=== PATIENT | male | born 1955 | race Caucasian/White ===

== ENCOUNTER 2023-10-03 18:51 | Inpatient (IN) | payer OTHER, SELFPAY ==
--- NOTE | ~2023-10-03 | XR_ITS ---
EXAMINATION: XR CHEST CLINICAL INFORMATION: Diffusely expiratory wheezing COMPARISON: 01/27/2016 TECHNIQUE: 2 views of the chest were obtained. FINDINGS: Hyperexpansion of the lung parenchyma with chronic emphysematous changes. There is small right pleural effusion seen. Increased interstitial reticular-nodular thickening seen bilaterally. Heart is normal in size. Thoracic aorta demonstrates scattered atherosclerotic calcifications XR/XR chest 2V IMPRESSION: Chronic emphysematous changes with small right pleural effusion. Increased interstitial reticular nodular thickening. Electronically signed by: Cheko Monahan MD 10/03/2023 09:36 PM EDT RP
--- NOTE | 2023-10-03 18:58 | ED.SOB ---
HPI - SOB/Dyspnea General Chief Complaint: Dyspnea Stated Complaint: asthma out of meds sob Time Seen by Provider: 10/03/23 19:02 Source: patient and family Mode of arrival: ambulatory Limitations: no limitations History of Present Illness ED Provider: tomy HALL Narrative: Patient is a 68-year-old male currently on methadone presenting to the emergency department with complaint of increasing dyspnea over the past month, worse this week. Patient's significant other states that he was worst on Saturday, Saturday, and Saturday of this week. She states he was too short of breath and weak to go to the methadone clinic to pick pulling machine tender his take-home methadone and was unable to get there until Saturday. Patient reports history of being diagnosed with COPD in the past at [facility] but states he is only prescribed an albuterol inhaler. He reports that his cough has recently become productive of yellow sputum. Denies fevers. Does not have home O2. Typically smokes 2 cigarettes per day, but recently felt too unwell to smoke at all. MD elicited complaint: shortness of breath and cough Pertinent past history: COPD Onset (ago): week(s) Timing: progressively worsening Exacerbating factors: exertion Relieving factors: rest Known history of: COPD Associated symptoms: cough and sputum production Treatment prior to arrival: none Related Data Allergies Allergy/AdvReac Type Severity Reaction Status Date / Time No Known Allergies Allergy Verified 10/03/23 19:04 Review of Systems Review of Systems: As per HPI. Yes all other systems are reviewed and are negative Constitutional: Constitutional: Reports as per HPI [facility] Social History Social History Advance Directives: No Advance Directives Information Provided: No Do you have a plan to hurt others: No Plan Physical Exam Vital Signs: Vital Signs: Last Vital Signs Temp 97.6 F 10/03/23 18:59 Pulse 79 10/03/23 20:58 Resp 18 10/03/23 20:58 BP 148/88 H 10/03/23 18:59 Pulse Ox 91 L 10/03/23 18:59 O2 Del Method Room Air 10/03/23 18:59 BMI result Body Mass Index 20.8 Vital signs have been reviewed and appear to be correct. Blood pressure elevated. Heart rate normal. Respiratory rate slightly tachypneic. Temperature normal. Oxygen saturation hypoxic on room air. Const: General: cooperative and no acute distress Nutritional Appearance: thin Orientation/consciousness: oriented to person, oriented to place, oriented to time and patient oriented x3 Limitations: no limitations HEENT: Head: Yes normocephalic and Yes atraumatic Ears: external ears normal General nose exam: Normal external nose present Face and sinus: Yes face symmetric Mouth: oropharynx normal and moist mucous membranes Throat: Yes uvula midline Eyes: Pupils: Equal, round and reactive pupils present Neck: Neck: Yes normal visual inspection and Yes supple Resp: Effort & Inspection: normal respiratory effort and able to speak in complete sentences Auscultation: diminished lung sounds diffuse Cardio: Rate: regular rate Rhythm: regular rhythm Heart sounds: S1 normal heart sound present and S2 normal heart sound present GI: Palpation (GI): Soft to palpation and nontender Auscultation: normoactive bowel sounds : General: Yes no CVA tenderness Back/Spine/Pelvis: Back: no CVA tenderness Skin: General skin exam: elasticity normal and turgor normal Neuro: General: oriented to person, oriented to place, oriented to time, patient oriented x3, moves all extremities, no focal motor deficits and CN's II-XI intact bilaterally Cranial nerves: Yes Equal, round and reactive pupils present Cognition (Neuro): normal cognition Extrem: General: Yes full ROM, Yes no pedal edema and Yes no calf tenderness Psych: Mental Status: mental status grossly normal Affect: normal affect Thought process: Normal thought process present Course Course Course Narrative: This is a Rapid Medical Examination (RME) performed by Yvrose Alas PA-C in triage. Full HPI, ROS, assessment and treatment plan per primary provider in the Main ED. 68 yo male hx of COPD not dependent on O2 and opioid use disorder on methadone here for eval of worsening sob x4 days with assoc productive cough. has been out of his inhaler. no fever/ chills. + satting 88% on RA. coughing. increased effort of breathing , diffuse expiratory wheezes. Plan: labs, cxr, ED bronch protocol Medications Administered Discontinued Medications Generic Name Dose Route Start Last Admin Trade Name Freq PRN Reason Stop Dose Admin Albuterol Sulfate 2.5 mg/ 0 mg 10/03/23 20:35 10/03/23 20:58 Albuterol/Ipratropium 3 ml INHALE 10/03/23 20:36 5 dose ONCE ONE Administration Methylprednisolone Sodium Succinate 125 mg 10/03/23 19:03 10/03/23 19:23 Methylprednisolone Sod Succ 125 Mg/2 Ml Vial IVPUSH 10/03/23 19:04 125 mg ONCE ONE Administration Medical Decision Making Medical Decision Making [facility] Narrative: Patient is a 68-year-old male currently on methadone presenting to the emergency department with complaint of increasing dyspnea over the past month, worse this week. On exam patient is awake, A+Ox3,slightly tachypneic, hypoxic on room air, BP mildly elevated, afebrile, normal neurological exam without focal deficits, physical exam findings as above. Given reported symptoms and physical exam findings, initial differential includes COPD exacerbation, viral illness, Covid, flu, bronchitis, pneumonia. Do not suspect sepsis at 19:40. Labs notable for leukocytosis, troponin of 10.6, downtrending on repeat. X-ray chest notable for small right pleural effusion, chronic emphysematous changes. My interpretation is in agreement with the radiologist's interpretation. IV ceftriaxone ordered. Admission accepted by Dr. Bazan. Differential Diagnosis Differential Diagnoses: The differential diagnosis associated with the presentation includes as per [facility] Admission/Observation Consideration of admission/observation: Escalation of care including admission/observation considered Consult Healthcare Provider Management of the patient was discussed with: Hospitalist (Dr. Bazan) Lab Data [facility] Lab Attestation statement: I reviewed the patient's lab results. As per [facility] 10/03/23 19:30 10/03/23 19:30 Labs: Lab Results 10/03/23 10/03/23 10/03/23 Range/Units 19:13 19:30 19:37 WBC 13.5 H (4.8-10.8) X10*3/uL RBC 5.11 (4.60-5.80) X10*6/uL Hgb 15.6 (14.0-18.0) g/dl Hct 45.8 (42.0-52.0) % MCV 89.6 (80.0-98.0) fL MCH 30.5 (27.0-33.0) pg MCHC 34.1 (31.0-36.0) g/dl RDW 12.4 (11.0-16.0) % Plt Count 348 (160-400) X10*3/uL MPV 8.9 L (9.4-12.4) fL Immature Gran % (Auto) 1.2 H (0.0-0.4) % Neut % (Auto) 69.3 (45-73) % Lymph % (Auto) 11.6 L (20-40) % [place] % (Auto) 16.6 H (2-11) % Eos % (Auto) 0.6 (0-4) % Baso % (Auto) 0.7 (0-2) % Lymph # (Auto) 1.6 (1.2-4.9) X10*3/uL [place] # (Auto) 2.2 H (0.1-1.2) X10*3/uL Eos # (Auto) 0.1 (0.0-0.4) X10*3/uL Baso # (Auto) 0.1 (0.0-0.2) X10*3/uL Abs Immat Gran (auto) 0.16 H (0.00-0.03) X10*3/uL Absolute Neuts (auto) 9.3 H (2.0-8.3) x10*3/uL Absolute Nucleated RBC 0.000 (0.0-0.012) X10*3/uL Nucleated RBC % (auto) 0.0 (0.0-0.2) /100WBC Smear Tech's Comments VERIFIED VBG pH 7.42 (7.32-7.43) VBG pCO2 51 mmHg VBG pO2 36 mmHg VBG HCO3 33 H (22-26) mmol/L VBG O2 Saturation 78.0 % VBG Base Excess 7.4 mmol/L Sodium 138 (135-145) mmol/L Potassium 3.5 (3.3-5.1) mmol/L Chloride 94 L (96-108) mmol/L Carbon Dioxide 30 H (22-29) mmol/L Anion Gap 18 (12-20) BUN 10 (9-16) mg/dL Creatinine 0.89 (0.5-1.4) mg/dL Estim Creat Clear Calc 71.8 Estimated GFR > 60 Random Glucose 101 (60-115) mg/dL Calcium 10.2 (8.4-10.2) mg/dL Magnesium 2.2 (1.6-2.6) mg/dL Total Bilirubin 0.6 (0.0-1.0) mg/dL AST 19 (5-37) U/L ALT 16 (0-40) U/L Alkaline Phosphatase 118 H (39-117) U/L Troponin I High Sens 10.6 (<3.5-35.0) ng/L Total Protein 8.0 (6.5-8.0) g/dL Albumin 3.8 (3.5-5.0) g/dL Influenza Type A (PCR) NEGATIVE (Negative) Influenza Type B (PCR) NEGATIVE (Negative) RSV RNA Qual (PCR) NEGATIVE (Negative) SARS-CoV-2 RNA (RT-PCR) NEGATIVE (Negative) 10/03/23 Range/Units 22:00 WBC (4.8-10.8) X10*3/uL RBC (4.60-5.80) X10*6/uL Hgb (14.0-18.0) g/dl Hct (42.0-52.0) % MCV (80.0-98.0) fL MCH (27.0-33.0) pg MCHC (31.0-36.0) g/dl RDW (11.0-16.0) % Plt Count (160-400) X10*3/uL MPV (9.4-12.4) fL Immature Gran % (Auto) (0.0-0.4) % Neut % (Auto) (45-73) % Lymph % (Auto) (20-40) % [place] % (Auto) (2-11) % Eos % (Auto) (0-4) % Baso % (Auto) (0-2) % Lymph # (Auto) (1.2-4.9) X10*3/uL [place] # (Auto) (0.1-1.2) X10*3/uL Eos # (Auto) (0.0-0.4) X10*3/uL Baso # (Auto) (0.0-0.2) X10*3/uL Abs Immat Gran (auto) (0.00-0.03) X10*3/uL Absolute Neuts (auto) (2.0-8.3) x10*3/uL Absolute Nucleated RBC (0.0-0.012) X10*3/uL Nucleated RBC % (auto) (0.0-0.2) /100WBC Smear Tech's Comments VBG pH (7.32-7.43) VBG pCO2 mmHg VBG pO2 mmHg VBG HCO3 (22-26) mmol/L VBG O2 Saturation % VBG Base Excess mmol/L Sodium (135-145) mmol/L Potassium (3.3-5.1) mmol/L Chloride (96-108) mmol/L Carbon Dioxide (22-29) mmol/L Anion Gap (12-20) BUN (9-16) mg/dL Creatinine (0.5-1.4) mg/dL Estim Creat Clear Calc Estimated GFR Random Glucose (60-115) mg/dL Calcium (8.4-10.2) mg/dL Magnesium (1.6-2.6) mg/dL Total Bilirubin (0.0-1.0) mg/dL AST (5-37) U/L ALT (0-40) U/L Alkaline Phosphatase (39-117) U/L Troponin I High Sens 10.3 (<3.5-35.0) ng/L Total Protein (6.5-8.0) g/dL Albumin (3.5-5.0) g/dL Influenza Type A (PCR) (Negative) Influenza Type B (PCR) (Negative) RSV RNA Qual (PCR) (Negative) SARS-CoV-2 RNA (RT-PCR) (Negative) Independent Interpretation I performed an independent interpretation of an: EKG (normal sinus rhythm, rate 78bpm, normal [place] interval, QTc) and Plain X-Ray Interpretation: X-ray chest notable for small right pleural effusion, chronic emphysematous changes. Radiology Impression Discussion of test interpretation with radiology: I have reviewed the radiologist's reading. Radiologist Impression: XR/XR chest 2V IMPRESSION: Chronic emphysematous changes with small right pleural effusion. Increased interstitial reticular nodular thickening. External Record Review External record reviewed: Inpatient record, Office record and Outpatient record Prescription Management I considered prescription management with: Antibiotic Discharge Plan Discharge Patient Disposition: Admitted As Inpatient Print Language: Portuguese
[2023-10-03 18:59] VITALS: BP 148/88; PULSE 88; RESP 24; TEMP 36.4; O2SAT 91; BMI 20.8
--- NOTE | 2023-10-03 19:03 | ECG_ITS ---
Test Reason : SHORTNESS OF BREATH Blood Pressure : / mmHG Vent. Rate : 078 BPM Atrial Rate : 078 BPM P-R Int : 124 ms QRS Dur : 076 ms QT Int : 388 ms P-R-T Axes : 065 052 052 degrees QTc Int : 442 ms Normal sinus rhythm Normal ECG When compared with ECG of 27-JAN-2016 13:55, QT has lengthened Referred By: Michelle Alas Electronically Signed By:NADIA CHRISTOPHER
[2023-10-03] MEDS: methylPREDNISolone Sod Succ 125 MG/2 ML VIAL IVPUSH (19:23)
[2023-10-03 19:40] LABS: Basophils Absolute Auto 0.1 X10*3/uL (0.0-0.2); Basophils Percent Auto 0.7 % (0-2); Eosinophils Absolute Auto 0.1 X10*3/uL (0.0-0.4); Eosinophils Percent Auto 0.6 % (0-4); Hematocrit 45.8 % (42.0-52.0); Hemoglobin 15.6 g/dl (14.0-18.0); Imm Gran Abs Auto 0.16 X10*3/uL (0.00-0.03); Imm Gran Pct Auto 1.2 % (0.0-0.4); Lymphocytes Absolute Auto 1.6 X10*3/uL (1.2-4.9); Lymphocytes Percent Auto 11.6 % (20-40); MANUAL DIFF FLAG SCAN; Mean Corpuscular HGB Conc 34.1 g/dl (31.0-36.0); Mean Corpuscular Hemoglobin 30.5 pg (27.0-33.0); Mean Corpuscular Volume 89.6 fL (80.0-98.0); Mean Platelet Volume 8.9 fL (9.4-12.4); Monocytes Absolute Auto 2.2 X10*3/uL (0.1-1.2); Monocytes Percent Auto 16.6 % (2-11); Neutrophils Absolute Auto 9.3 x10*3/uL (2.0-8.3); Neutrophils Percent Auto 69.3 % (45-73); Platelet Count 348 X10*3/uL (160-400); Red Blood Count 5.11 X10*6/uL (4.60-5.80); Red Cell Distribution Width 12.4 % (11.0-16.0); SCAN SMEAR FLAG 1; White Blood Count 13.5 X10*3/uL (4.8-10.8)
[2023-10-03 19:42] LABS: VBG Base Excess 7.4 mmol/L; VBG HCO3 33 mmol/L (22-26); VBG pCO2 51 mmHg; VBG pH 7.42 (7.32-7.43); VBG pO2 36 mmHg
[2023-10-03 19:43] LABS: Venous Blood Gas Refer to POC result
[2023-10-03 20:09] LABS: SLIDE REVIEW VERIFIED
[2023-10-03 20:10] LABS: Influenza A PCR NEGATIVE (Negative); Influenza B PCR NEGATIVE (Negative); Resp Syncy Virus RNA Qual PCR NEGATIVE (Negative); SARS COV2 PCR INHOUSE NEGATIVE (Negative)
[2023-10-03 20:11] LABS: Alanine Aminotransferase 16 U/L (0-40); Albumin Level 3.8 g/dL (3.5-5.0); Alkaline Phosphatase 118 U/L (39-117); Anion Gap 18 (12-20); Aspartate Amino Transferase 19 U/L (5-37); Bilirubin Total 0.6 mg/dL (0.0-1.0); Blood Urea Nitrogen 10 mg/dL (9-16); Calcium 10.2 mg/dL (8.4-10.2); Carbon Dioxide 30 mmol/L (22-29); Chloride 94 mmol/L (96-108); Creatinine Clr Calc Pharmacy 71.8; Estimated Glomerular Filt Rate > 60; Glucose Random 101 mg/dL (60-115); Magnesium 2.2 mg/dL (1.6-2.6); Potassium 3.5 mmol/L (3.3-5.1); Sodium 138 mmol/L (135-145)
[2023-10-03 20:19] LABS: Troponin-I High Sensitivity 10.6 ng/L (<3.5-35.0)
--- NOTE | 2023-10-03 20:20 | PC.NURSE ---
pt brought in from [facility] to ed5 reporting asthma exacerbation/diff breathing x 1 mo. pt reports he is a daily smoker has not been seen by pulmonology/pcp for this, no dx of copd, no home o2. 82-85% on RA, placed on 2L NC. Juli [employer]RA[employer]AD[employer] made aware. sats up to 96%. pt appears to be pursed lip breathing and states thats how hes been breathing for 1 month. iv established labs obtained ekg done. friend at bedside. call lamb within reach.
[2023-10-03 20:58] VITALS: PULSE 79; RESP 18; O2SAT 94
[2023-10-03] MEDS: Albuterol Sulfate 2.5 MG, Albuterol/Iprat 2.5/0.5MG 3 ML 3 ML INHALE (20:58)
[2023-10-03 22:33] LABS: Troponin-I High Sensitivity 10.3 ng/L (<3.5-35.0)
--- NOTE | 2023-10-03 22:59 | PM.IMHP ---
History of Present Illness Date of Service: 10/03/23 Chief Complaint: Dyspnea This is a 68-year-old male with pertinent history of COPD not on home oxygen, tobacco use disorder, hepatitis-C, opioid use disorder on methadone who presents to the emergency department for evaluation of dyspnea. Patient states he has been having progressively worsening dyspnea that has been ongoing for the last 3-4 weeks. The dyspnea is worse with exertion. Also has associated productive cough and wheezing. Does have a history of COPD but is on albuterol home inhaler p.r.n.. Patient states he was too short of breath to go to the methadone clinic to take his methadone. Continues to smokes cigarettes. States he is currently not on treatment for hepatitis-C. No fever, chills, chest discomfort, palpitations, abdominal pain, changes in urinary or bowel habits. In the emergency department, patient was satting 86% on room air. He was placed on 2 L supplemental oxygen and given IV steroids with multiple DuoNeb treatments. Review of Systems Constitutional: Constitutional: Reports fatigue, Reports malaise and Reports weakness Cardiovascular: Cardiovascular: Reports dyspnea on exertion Respiratory: Respiratory: Reports cough, Reports dyspnea on exertion and Reports wheezing Gastrointestinal: Gastrointestinal: Reports no additional gastrointestinal complaints Genitourinary: Genitourinary: Reports no additional male genitourinary complaints Neurologic: Reports weakness Endocrine: Endocrine: Reports fatigue Allergic/Immunologic: Allergic/Immunologic: Reports wheezing [facility] Medical History Hepatitis C Tobacco use disorder Opioid use disorder COPD (chronic obstructive pulmonary disease) Pertinent family history: No family history of early CAD Social History Smoked in Last 30 Days: Yes Use of substances other than those prescribed or required for medical reasons: No Advance Directives: No Advance Directives Information Provided: No Do you have a plan to hurt others: No Plan Meds Allergies Allergy/AdvReac Type Severity Reaction Status Date / Time No Known Allergies Allergy Verified 10/03/23 19:04 Active Medications: Current Medications Ceftriaxone Sodium 1 gm/ (Sodium Chloride) 50 mls @ 100 mls/hr IV ONCE ONE Stop: 10/03/23 23:21 Physical Exam Vital Signs and Narrative: Vital Signs: Last Vital Signs Temp 97.6 F 10/03/23 18:59 Pulse 79 10/03/23 20:58 Resp 18 10/03/23 20:58 BP 148/88 H 10/03/23 18:59 Pulse Ox 91 L 10/03/23 18:59 O2 Del Method Room Air 10/03/23 18:59 BMI result Body Mass Index 20.8 Middle-aged male lying in bed in mild distress on supplemental oxygen Neck supple, no JVD Regular rate and rhythm, S1-S2 heard Bilateral wheezing without crackles Abdomen soft nontender, no guarding, no rigidity Patient is awake, alert and oriented to self, place, time and person ; no focal motor deficit Psych: Normal mood No pedal edema Results Labs 10/03/23 19:30 10/03/23 19:30 Labs: Laboratory Results - last 24 hr 10/03/23 10/03/23 10/03/23 19:13 19:30 19:37 MCV 89.6 MCH 30.5 MCHC 34.1 RDW 12.4 Plt Count 348 MPV 8.9 L Immature Gran % (Auto) 1.2 H Neut % (Auto) 69.3 Lymph % (Auto) 11.6 L Daniels % (Auto) 16.6 H Eos % (Auto) 0.6 Baso % (Auto) 0.7 Lymph # (Auto) 1.6 Daniels # (Auto) 2.2 H Eos # (Auto) 0.1 Baso # (Auto) 0.1 Abs Immat Gran (auto) 0.16 H Absolute Neuts (auto) 9.3 H Absolute Nucleated RBC 0.000 Nucleated RBC % (auto) 0.0 Smear Tech's Comments VERIFIED VBG pH 7.42 VBG pCO2 51 VBG pO2 36 VBG HCO3 33 H VBG O2 Saturation 78.0 VBG Base Excess 7.4 Anion Gap 18 Estim Creat Clear Calc 71.8 Estimated GFR > 60 Random Glucose 101 Calcium 10.2 Magnesium 2.2 Total Bilirubin 0.6 AST 19 ALT 16 Alkaline Phosphatase 118 H Troponin I High Sens 10.6 Total Protein 8.0 Albumin 3.8 Influenza Type A (PCR) NEGATIVE Influenza Type B (PCR) NEGATIVE RSV RNA Qual (PCR) NEGATIVE SARS-CoV-2 RNA (RT-PCR) NEGATIVE 10/03/23 22:00 MCV MCH MCHC RDW Plt Count MPV Immature Gran % (Auto) Neut % (Auto) Lymph % (Auto) Daniels % (Auto) Eos % (Auto) Baso % (Auto) Lymph # (Auto) Daniels # (Auto) Eos # (Auto) Baso # (Auto) Abs Immat Gran (auto) Absolute Neuts (auto) Absolute Nucleated RBC Nucleated RBC % (auto) Smear Tech's Comments VBG pH VBG pCO2 VBG pO2 VBG HCO3 VBG O2 Saturation VBG Base Excess Anion Gap Estim Creat Clear Calc Estimated GFR Random Glucose Calcium Magnesium Total Bilirubin AST ALT Alkaline Phosphatase Troponin I High Sens 10.3 Total Protein Albumin Influenza Type A (PCR) Influenza Type B (PCR) RSV RNA Qual (PCR) SARS-CoV-2 RNA (RT-PCR) Imaging Radiologist's Impressions: Impressions Chest X-Ray 10/03/23 19:03 IMPRESSION: Chronic emphysematous changes with small right pleural effusion. Increased interstitial reticular nodular thickening. Electronically signed by: Cheko Monahan MD 10/03/2023 09:36 PM EDT RP Assessment and Plan (1) Acute exacerbation of chronic obstructive pulmonary disease: Status: Acute Plan This is a 68-year-old male with pertinent history of COPD not on home oxygen, tobacco use disorder, hepatitis-C, opioid use disorder on methadone who presents to the emergency department for evaluation of dyspnea. #. Acute hypoxic respiratory failure due to acute exacerbation of COPD: Will admit patient with supplemental oxygen. Scheduled and p.r.n. DuoNebs. Initiating systemic steroids IV. Will need to be prescribed home inhaler upon discharge. Initiating azithromycin for pleiotropic effect #. Tobacco use disorder: Counseled regarding cessation. #. Opioid use disorder: On methadone Med rec pending DVT prophylaxis: Lovenox Full code Admit as inpatient and will require two night minimum hospital stay for supplemental oxygen, IV steroids (as above), which is not possible in a lesser acute setting. Quality Stroke Does the patient have a stroke diagnosis?: No VTE Prior VTE?: No VTE Risk Level:: Medical - moderate - high VTE Device Contraindication: Treatment Not Indicated VTE Drug Contraindication: N/A - Med Ordered
--- NOTE | 2023-10-03 23:35 | PC.NURSE ---
Assumed care of pt. Pt lying on stretcher, phlebotomy at bedside. Continuing plan for abx.
[2023-10-03 23:39] VITALS: PULSE 73; RESP 17; O2SAT 95
[2023-10-03 23:42] VITALS: BP 128/75; PULSE 72; RESP 18; TEMP 36.6; O2SAT 96
[2023-10-04] VITALS (8 sets, daily range): BP systolic 118–132; BP diastolic 62–64; PULSE 62–78; RESP 16–20; TEMP 36.2–36.9; O2SAT 94–97
[2023-10-04 00:01] LABS: Lactic Acid 1.3 mmol/L (0.5-2.0)
[2023-10-04] MEDS: Enoxaparin Sodium 40 MG/0.4 ML SYRINGE SUBCUT ×2 (00:06→22:14)
[2023-10-04] MEDS: cefTRIAXone sodium 1 GM in 0.9 % Sodium Chloride 50 ML IV (00:06)
[2023-10-04] MEDS: 0.9 % Sodium Chloride 1,000 ML 999 ML IV (00:07)
[2023-10-04] MEDS: Azithromycin 500 MG in 0.9 % Sodium Chloride 250 ML 125 MG IV ×2 (01:53→22:13)
[2023-10-04 05:02] LABS: MANUAL DIFF FLAG NO
[2023-10-04 05:03] LABS: Basophils Percent Auto 0.4 % (0-2); Eosinophils Percent Auto 0.3 % (0-4); Hematocrit 40.5 % (42.0-52.0); Hemoglobin 13.4 g/dl (14.0-18.0); Imm Gran Abs Auto 0.15 X10*3/uL (0.00-0.03); Imm Gran Pct Auto 1.7 % (0.0-0.4); Lymphocytes Absolute Auto 0.7 X10*3/uL (1.2-4.9); Lymphocytes Percent Auto 7.2 % (20-40); Mean Corpuscular HGB Conc 33.1 g/dl (31.0-36.0); Mean Corpuscular Hemoglobin 30.3 pg (27.0-33.0); Mean Corpuscular Volume 91.6 fL (80.0-98.0); Mean Platelet Volume 9.1 fL (9.4-12.4); Monocytes Absolute Auto 0.5 X10*3/uL (0.1-1.2); Neutrophils Absolute Auto 7.6 x10*3/uL (2.0-8.3); Neutrophils Percent Auto 84.4 % (45-73); Platelet Count 275 X10*3/uL (160-400); Red Blood Count 4.42 X10*6/uL (4.60-5.80); Red Cell Distribution Width 12.1 % (11.0-16.0)
[2023-10-04 05:20] LABS: Anion Gap 13 (12-20); Blood Urea Nitrogen 12 mg/dL (9-16); Carbon Dioxide 25 mmol/L (22-29); Chloride 105 mmol/L (96-108); Creatinine Clr Calc Pharmacy 76.1; Estimated Glomerular Filt Rate > 60; Glucose Random 158 mg/dL (60-115); Potassium 3.8 mmol/L (3.3-5.1); Sodium 139 mmol/L (135-145)
--- NOTE | 2023-10-04 06:12 | PC.NURSE ---
Methadone dosing confirmed by this RN, form faxed to pharmacy
--- NOTE | 2023-10-04 06:20 | HE.PHANOTE ---
Re Methadone Received methadone verification form from RN. Pt gets 75 mg from [facility], last dose given on 10/03/23 @ 0800.
[2023-10-04] MEDS: Albuterol/Iprat 2.5/0.5MG 3 ML AMPUL.NEB INHALE ×4 (07:50→19:32)
--- NOTE | 2023-10-04 08:07 | P.PNIM_ITS ---
Subjective Subjective Date of Service: 10/04/23 Interval History: Seen in follow up for: COPD exacerbation, hypoxia Interval history: Reports feeling better but still with sob, remains on supplemental O2. NO fevers, chills, chest pain. Still with productive cough Review of Systems Review of Systems: Yes all other systems are reviewed and are negative Physical Exam 2 Vital Signs: Vital Signs: Last Vital Signs Temp 98.4 F 10/04/23 06:02 Pulse 78 10/04/23 07:50 Resp 19 10/04/23 07:50 BP 121/64 10/04/23 06:02 Pulse Ox 97 10/04/23 06:02 O2 Del Method Room Air 10/04/23 06:02 O2 Flow Rate 2 10/03/23 23:42 BMI result Body Mass Index 20.8 Constitutional - Awake and Alert, No apparent distress Eyes - PERRLA, EOMI Cardiovascular - S1S2, RRR, No edema Respiratory - Normal lung expansion, Normal respiratory effort, some pursed lips breathing, diffuse expiratory wheezing Gastrointestinal - NT / ND; +BS; No rebound or guarding Extremities - no calf tenderness bilaterally, no swelling Skin - Warm/Dry Neurological - Alert & oriented x3 Psychological - Appropriate affect Objective Data Active Medications Acetaminophen (Acetaminophen 325 Mg Tablet) 650 mg PO Q6H PRN PRN Reason: Pain, Mild (Pain Scale 1-3), fever or headache Albuterol/Ipratropium (Albuterol/Iprat 2.5/0.5mg 3 Ml Ampul.Neb) 3 ml INHALE RQ4H WHILE AWAKE [facility] Last Admin: 10/04/23 07:50 Dose: 3 ml Documented By: NOBLE Albuterol/Ipratropium (Albuterol/Iprat 2.5/0.5mg 3 Ml Ampul.Neb) 3 ml INHALE Q4H PRN PRN Reason: Wheezing Calcium Carbonate (Calcium Carbonate 750 Mg Tab.Chew) 750 mg PO Q4H PRN PRN Reason: Heartburn Enoxaparin Sodium (Enoxaparin Sodium 40 Mg/0.4 Ml Syringe) 40 mg SUBCUT Q24H [facility] Last Admin: 10/04/23 00:06 Dose: 40 mg Documented By: MEGAN Azithromycin 500 mg/ Sodium (Chloride) 250 mls @ 125 mls/hr IV Q24H [facility] Last Infusion: 10/04/23 03:59 Dose: Infused Documented By: MEGAN Magnesium Hydroxide (Milk Of Magnesia 30 Ml Oral.Susp) 30 ml PO DAILY PRN PRN Reason: Constipation Melatonin (Melatonin 3 Mg Tablet) 6 mg PO BEDTIME PRN PRN Reason: Insomnia Methylprednisolone Sodium Succinate (Methylprednisolone Sod Succ 40 Mg/Ml Vial) 40 mg IVPUSH Q12H [facility] Ondansetron HCl (Ondansetron Hcl 4 Mg/2 Ml Vial) 4 mg IVPUSH Q8H PRN PRN Reason: Nausea and Vomiting Sodium Chloride (0.9 % Sodium Chloride Flush 3 Ml Syringe) 3 ml IVFLUSH QSHIFT [facility] Last Admin: 10/04/23 01:51 Dose: Not Given Documented By: MEGAN Non-Admin Reason: IV Running Labs 10/04/23 04:47 10/04/23 04:47 Labs: Laboratory Results - last 24 hr 10/03/23 10/03/23 10/03/23 19:13 19:30 19:37 MCV 89.6 MCH 30.5 MCHC 34.1 RDW 12.4 Plt Count 348 MPV 8.9 L Immature Gran % (Auto) 1.2 H Neut % (Auto) 69.3 Lymph % (Auto) 11.6 L [place] % (Auto) 16.6 H Eos % (Auto) 0.6 Baso % (Auto) 0.7 Lymph # (Auto) 1.6 [place] # (Auto) 2.2 H Eos # (Auto) 0.1 Baso # (Auto) 0.1 Abs Immat Gran (auto) 0.16 H Absolute Neuts (auto) 9.3 H Absolute Nucleated RBC 0.000 Nucleated RBC % (auto) 0.0 Smear Tech's Comments VERIFIED VBG pH 7.42 VBG pCO2 51 VBG pO2 36 VBG HCO3 33 H VBG O2 Saturation 78.0 VBG Base Excess 7.4 Anion Gap 18 Estim Creat Clear Calc 71.8 Estimated GFR > 60 Random Glucose 101 Lactic Acid Calcium 10.2 Magnesium 2.2 Total Bilirubin 0.6 AST 19 ALT 16 Alkaline Phosphatase 118 H Troponin I High Sens 10.6 Total Protein 8.0 Albumin 3.8 Influenza Type A (PCR) NEGATIVE Influenza Type B (PCR) NEGATIVE RSV RNA Qual (PCR) NEGATIVE SARS-CoV-2 RNA (RT-PCR) NEGATIVE 10/03/23 10/03/23 10/04/23 22:00 23:38 04:47 MCV 91.6 MCH 30.3 MCHC 33.1 RDW 12.1 Plt Count 275 MPV 9.1 L Immature Gran % (Auto) 1.7 H Neut % (Auto) 84.4 H Lymph % (Auto) 7.2 L [place] % (Auto) 6.0 Eos % (Auto) 0.3 Baso % (Auto) 0.4 Lymph # (Auto) 0.7 L [place] # (Auto) 0.5 Eos # (Auto) 0.0 Baso # (Auto) 0.0 Abs Immat Gran (auto) 0.15 H Absolute Neuts (auto) 7.6 Absolute Nucleated RBC 0.000 Nucleated RBC % (auto) 0.0 Smear Tech's Comments VBG pH VBG pCO2 VBG pO2 VBG HCO3 VBG O2 Saturation VBG Base Excess Anion Gap 13 Estim Creat Clear Calc 76.1 Estimated GFR > 60 Random Glucose 158 H Lactic Acid 1.3 Calcium 9.0 D Magnesium Total Bilirubin AST ALT Alkaline Phosphatase Troponin I High Sens 10.3 Total Protein Albumin Influenza Type A (PCR) Influenza Type B (PCR) RSV RNA Qual (PCR) SARS-CoV-2 RNA (RT-PCR) Assessment and Plan (1) Acute exacerbation of chronic obstructive pulmonary disease: Status: Acute (2) Acute hypoxemic respiratory failure: Status: Acute Plan 68-year-old male with pertinent history of COPD not on home oxygen, tobacco use disorder, hepatitis-C, opioid use disorder on methadone admitted for copd exacerbation and hypoxia #Acute hypoxic respiratory failure due to acute exacerbation of COPD Continue supplemental O2, wean as tolerated IV methylprednisolone 40mg bid Duonebs peterson/prn add robitussin ac azithromycin for pleiotropic effect #Tobacco use disorder Counseled regarding cessation. #Opioid use disorder On methadone DVT prophylaxis: Lovenox Full code requires ongoing inpt stay fopr iv steroids, nebs, and close monitoring of respiratory status given ongoing sob, pursed lips breathing, and extensive wheezing Quality Stroke Does the patient have a stroke diagnosis?: No VTE Prior VTE?: No VTE Risk Level:: Medical - moderate - high VTE Device Contraindication: Treatment Not Indicated VTE Drug Contraindication: N/A - Med Ordered
--- NOTE | 2023-10-04 08:19 | MHC.CM.PN ---
Met with patient in regards to discharge planning. Patient currently doesn't have a place to live. He has been couch surfing . Ambulates independently and receives Methadone from [facility]. Patient is currently on oxygen but not at baseline. Patient denies having a PCP. Copy of HCP obtained from [facility]. IMM explained and signed. Patient's car is in the parking lot and he will transport himself home when medically stable. PCP list provided. [facility] and [facility] resource book provided to patient. Continue to monitor for d/c needs.
--- NOTE | 2023-10-04 08:59 | PHA.MEDREC ---
Pharmacy Consult ? Medication Reconciliation Pharmacy has completed the medication reconciliation. Spoke to patient and confirmed medication list. Patient said he is only taking methadone from clinic and he hasn't started taking Mavyret yet.
[2023-10-04] MEDS: guaiFEN/Codeine SF 200/20/10ML 10 ML LIQUID PO (09:06)
[2023-10-04] MEDS: 0.9 % Sodium Chloride Flush 3 ML SYRINGE IVFLUSH ×3 (09:06→21:07)
[2023-10-04] MEDS: methylPREDNISolone Sod Succ 40 MG/ML VIAL IVPUSH ×2 (09:06→21:07)
[2023-10-04] MEDS: methADONE HCl 20 MG/2 ML ORAL.CONC 75 MG PO (10:55)
[2023-10-04] MEDS: Benzonatate 100 MG CAPSULE 200 MG PO (23:59)
[2023-10-05] VITALS (8 sets, daily range): BP systolic 116–148; BP diastolic 56–70; PULSE 52–78; RESP 15–20; TEMP 36–36.6; O2SAT 93–98
[2023-10-05] MEDS: guaiFEN/Codeine SF 200/20/10ML 10 ML LIQUID PO ×2 (02:09→23:35)
[2023-10-05] MEDS: Albuterol/Iprat 2.5/0.5MG 3 ML AMPUL.NEB INHALE ×3 (07:59→15:35)
[2023-10-05] MEDS: methylPREDNISolone Sod Succ 40 MG/ML VIAL IVPUSH ×2 (09:06→21:25)
[2023-10-05] MEDS: 0.9 % Sodium Chloride Flush 3 ML SYRINGE IVFLUSH ×3 (09:06→21:25)
[2023-10-05] MEDS: methADONE HCl 20 MG/2 ML ORAL.CONC 75 MG PO (09:06)
--- NOTE | 2023-10-05 11:41 | HO.PM.IMPN ---
Subjective Subjective Date of Service: 10/05/23 Interval History: still coughing + wheezing Review of Systems Review of Systems: Yes all other systems are reviewed and are negative Physical Exam Vital Signs: Vital Signs: Last Vital Signs Temp 96.8 F 10/05/23 07:18 Pulse 63 10/05/23 07:59 Resp 18 10/05/23 07:59 BP 116/56 L 10/05/23 07:18 Pulse Ox 96 10/05/23 07:18 O2 Del Method Nasal Cannula 10/05/23 07:18 O2 Flow Rate 2 10/05/23 07:18 BMI result Body Mass Index 20.8 Gen: in no acute distress HEENT: sclera anicteric, moist mucus membranes Neck: supple Lungs: extensive bilateral expiratory wheezing with prolonged expiratory phase Heart: regular rate and rhythm, no murmurs Abd: soft, non-tender, non-distended Ext: no edema Skin: warm/well-perfused Neuro: alert and oriented x3, no focal findings Psych: appropriate affect Objective Data Active Medications Acetaminophen (Acetaminophen 325 Mg Tablet) 650 mg PO Q6H PRN PRN Reason: Pain, Mild (Pain Scale 1-3), fever or headache Albuterol/Ipratropium (Albuterol/Iprat 2.5/0.5mg 3 Ml Ampul.Neb) 3 ml INHALE RQ4H WHILE AWAKE [facility] Last Admin: 10/05/23 07:59 Dose: 3 ml Documented By: ZAIDA Albuterol/Ipratropium (Albuterol/Iprat 2.5/0.5mg 3 Ml Ampul.Neb) 3 ml INHALE Q4H PRN PRN Reason: Wheezing Benzonatate (Benzonatate 100 Mg Capsule) 200 mg PO TID PRN PRN Reason: Cough Last Admin: 10/04/23 23:59 Dose: 200 mg Documented By: PAT Calcium Carbonate (Calcium Carbonate 750 Mg Tab.Chew) 750 mg PO Q4H PRN PRN Reason: Heartburn Enoxaparin Sodium (Enoxaparin Sodium 40 Mg/0.4 Ml Syringe) 40 mg SUBCUT Q24H [facility] Last Admin: 10/04/23 22:14 Dose: 40 mg Documented By: PAT Guaifenesin/Codeine Phosphate (Guaifen/Codeine Sf 200/20/10ml 10 Ml Liquid) 10 ml PO Q6H PRN PRN Reason: Cough Last Admin: 10/05/23 02:09 Dose: 10 ml Documented By: PAT Azithromycin 500 mg/ Sodium (Chloride) 250 mls @ 125 mls/hr IV Q24H [facility] Last Infusion: 10/05/23 00:43 Dose: Infused Documented By: PAT Magnesium Hydroxide (Milk Of Magnesia 30 Ml Oral.Susp) 30 ml PO DAILY PRN PRN Reason: Constipation Melatonin (Melatonin 3 Mg Tablet) 6 mg PO BEDTIME PRN PRN Reason: Insomnia Methadone HCl (Methadone Hcl 20 Mg/2 Ml Oral.Conc) 75 mg PO DAILY [facility] Last Admin: 10/05/23 09:06 Dose: 75 mg Documented By: KALI Co-signed By: COTEMA Methylprednisolone Sodium Succinate (Methylprednisolone Sod Succ 40 Mg/Ml Vial) 40 mg IVPUSH Q12H [facility] Last Admin: 10/05/23 09:06 Dose: 40 mg Documented By: KALI Ondansetron HCl (Ondansetron Hcl 4 Mg/2 Ml Vial) 4 mg IVPUSH Q8H PRN PRN Reason: Nausea and Vomiting Sodium Chloride (0.9 % Sodium Chloride Flush 3 Ml Syringe) 3 ml IVFLUSH QSHIFT [facility] Last Admin: 10/05/23 09:06 Dose: 3 ml Documented By: KALI Labs 10/04/23 04:47 10/04/23 04:47 Microbiology Microbiology Results: Microbiology 10/03/23 23:38 Blood Culture - Preliminary Blood - Venous No growth after 24 hours. 10/03/23 23:38 Blood Culture - Preliminary Blood - Venous No growth after 24 hours. Assessment and Plan (1) Acute hypoxemic respiratory failure: Status: Acute (2) Acute exacerbation of chronic obstructive pulmonary disease: Status: Acute Plan d2 68yo M with COPD not on home O2, tobacco abuse, HCV, OUD on methadone admitted for AHRF due to COPD exacerbation AHRF due to COPD exacerbation - wean O2 as tolerated, continue IV methylprednisolone + scheduled/prn nebs, azithromycin 10/02-, antitussives tobacco abuse - counseled OUD - methadone VTE ppx - enoxaparin dispo - eventual home In my clinical judgment, the patient requires continued inpatient hospitalization for the following reasons: wheezing, O2 dependence Total time managing care of this patient today: 35 minutes. Quality Stroke Does the patient have a stroke diagnosis?: No VTE Prior VTE?: No VTE Risk Level:: Medical - moderate - high VTE Device Contraindication: Treatment Not Indicated VTE Drug Contraindication: N/A - Med Ordered
[2023-10-05] MEDS: Enoxaparin Sodium 40 MG/0.4 ML SYRINGE SUBCUT (21:26)
[2023-10-05] MEDS: Azithromycin 500 MG in 0.9 % Sodium Chloride 250 ML 125 MG IV (23:35)
[2023-10-06] VITALS (9 sets, daily range): BP systolic 136–165; BP diastolic 62–78; PULSE 52–89; RESP 16–20; TEMP 36.1–36.4; O2SAT 90–98
[2023-10-06] MEDS: Albuterol/Iprat 2.5/0.5MG 3 ML AMPUL.NEB INHALE ×4 (08:05→20:08)
[2023-10-06] MEDS: methylPREDNISolone Sod Succ 40 MG/ML VIAL IVPUSH ×2 (08:51→19:43)
[2023-10-06] MEDS: methADONE HCl 20 MG/2 ML ORAL.CONC 75 MG PO (08:51)
[2023-10-06] MEDS: 0.9 % Sodium Chloride Flush 3 ML SYRINGE IVFLUSH ×2 (10:17→16:26)
--- NOTE | 2023-10-06 10:55 | P.PNIM_ITS ---
Subjective Subjective Date of Service: 10/06/23 Interval History: coughing constantly and has extensive wheezing; dyspneic no chest pain no fever Review of Systems Review of Systems: Yes all other systems are reviewed and are negative Physical Exam 2 Vital Signs: Vital Signs: Last Vital Signs Temp 97.0 F 10/06/23 07:29 Pulse 55 10/06/23 08:05 Resp 16 10/06/23 08:05 BP 154/75 H 10/06/23 07:29 Pulse Ox 97 10/06/23 07:29 O2 Del Method Nasal Cannula 10/06/23 07:29 O2 Flow Rate 2 10/06/23 07:29 BMI result Body Mass Index 20.8 Gen: in moderate resp distress, coughing constantly HEENT: sclera anicteric, moist mucus membranes Neck: supple Lungs: extensive bilateral expiratory wheezing with prolonged expiratory phase Heart: regular rate and rhythm, no murmurs Abd: soft, non-tender, non-distended Ext: no edema Skin: warm/well-perfused Neuro: alert and oriented x3, no focal findings Psych: appropriate affect Objective Data Active Medications Acetaminophen (Acetaminophen 325 Mg Tablet) 650 mg PO Q6H PRN PRN Reason: Pain, Mild (Pain Scale 1-3), fever or headache Albuterol Sulfate (Albuterol Sulfate (0.083%) 2.5 Mg/3 Ml Vial.Neb) 2.5 mg INHALE Q2H PRN PRN Reason: Shortness of Breath/Wheezing Albuterol/Ipratropium (Albuterol/Iprat 2.5/0.5mg 3 Ml Ampul.Neb) 3 ml INHALE RQ4H WHILE AWAKE [facility] Last Admin: 10/06/23 08:05 Dose: 3 ml Documented By: ZAIDA Benzonatate (Benzonatate 100 Mg Capsule) 200 mg PO TID PRN PRN Reason: Cough Last Admin: 10/04/23 23:59 Dose: 200 mg Documented By: PAT Calcium Carbonate (Calcium Carbonate 750 Mg Tab.Chew) 750 mg PO Q4H PRN PRN Reason: Heartburn Enoxaparin Sodium (Enoxaparin Sodium 40 Mg/0.4 Ml Syringe) 40 mg SUBCUT Q24H [facility] Last Admin: 10/05/23 21:26 Dose: 40 mg Documented By: PAT Guaifenesin/Codeine Phosphate (Guaifen/Codeine Sf 200/20/10ml 10 Ml Liquid) 10 ml PO Q6H PRN PRN Reason: Cough Last Admin: 10/05/23 23:35 Dose: 10 ml Documented By: PAT Azithromycin 500 mg/ Sodium (Chloride) 250 mls @ 125 mls/hr IV Q24H [facility] Last Infusion: 10/06/23 01:42 Dose: Infused Documented By: PAT Magnesium Hydroxide (Milk Of Magnesia 30 Ml Oral.Susp) 30 ml PO DAILY PRN PRN Reason: Constipation Melatonin (Melatonin 3 Mg Tablet) 6 mg PO BEDTIME PRN PRN Reason: Insomnia Methadone HCl (Methadone Hcl 20 Mg/2 Ml Oral.Conc) 75 mg PO DAILY [facility] Last Admin: 10/06/23 08:51 Dose: 75 mg Documented By: KALI Co-signed By: COTEMA Methylprednisolone Sodium Succinate (Methylprednisolone Sod Succ 40 Mg/Ml Vial) 40 mg IVPUSH Q12H [facility] Last Admin: 10/06/23 08:51 Dose: 40 mg Documented By: KALI Ondansetron HCl (Ondansetron Hcl 4 Mg/2 Ml Vial) 4 mg IVPUSH Q8H PRN PRN Reason: Nausea and Vomiting Sodium Chloride (0.9 % Sodium Chloride Flush 3 Ml Syringe) 3 ml IVFLUSH QSHIFT [facility] Last Admin: 10/06/23 10:17 Dose: 3 ml Documented By: KALI Labs 10/04/23 04:47 10/04/23 04:47 Microbiology Microbiology Results: Microbiology 10/03/23 23:38 Blood Culture - Preliminary Blood - Venous No growth after 48 hours. 10/03/23 23:38 Blood Culture - Preliminary Blood - Venous No growth after 48 hours. Assessment and Plan (1) Acute hypoxemic respiratory failure: Status: Acute (2) Acute exacerbation of chronic obstructive pulmonary disease: Status: Acute Plan d3 68yo M with COPD not on home O2, tobacco abuse, HCV, OUD on methadone admitted for AHRF due to COPD exacerbation AHRF due to COPD exacerbation - wean O2 as tolerated, continue IV methylprednisolone + scheduled/prn nebs, azithromycin 10/02-, antitussives tobacco abuse - counseled OUD - methadone VTE ppx - enoxaparin dispo - PT + home O2 evals In my clinical judgment, the patient requires continued inpatient hospitalization for the following reasons: wheezing, dyspneic, O2 dependence Total time managing care of this patient today: 35 minutes. Quality Stroke Does the patient have a stroke diagnosis?: No VTE Prior VTE?: No VTE Risk Level:: Medical - moderate - high VTE Device Contraindication: Treatment Not Indicated VTE Drug Contraindication: N/A - Med Ordered
[2023-10-06] MEDS: guaiFEN/Codeine SF 200/20/10ML 10 ML LIQUID PO ×2 (11:52→19:45)
[2023-10-06] MEDS: Enoxaparin Sodium 40 MG/0.4 ML SYRINGE SUBCUT (19:43)
[2023-10-07] VITALS (8 sets, daily range): BP systolic 137–165; BP diastolic 71–80; PULSE 56–85; RESP 16–20; TEMP 36.2–36.6; O2SAT 93–98
[2023-10-07] MEDS: Benzonatate 100 MG CAPSULE 200 MG PO (00:34)
[2023-10-07] MEDS: Melatonin 3 MG TABLET 6 MG PO (00:34)
[2023-10-07] MEDS: Azithromycin 500 MG in 0.9 % Sodium Chloride 250 ML 125 MG IV ×2 (00:39→23:16)
[2023-10-07] MEDS: 0.9 % Sodium Chloride Flush 3 ML SYRINGE IVFLUSH ×3 (00:39→23:16)
[2023-10-07] MEDS: guaiFEN/Codeine SF 200/20/10ML 10 ML LIQUID PO ×3 (02:59→19:27)
[2023-10-07] MEDS: Albuterol/Iprat 2.5/0.5MG 3 ML AMPUL.NEB INHALE ×4 (07:36→19:37)
[2023-10-07] MEDS: methylPREDNISolone Sod Succ 40 MG/ML VIAL IVPUSH ×2 (09:10→19:27)
[2023-10-07] MEDS: methADONE HCl 20 MG/2 ML ORAL.CONC 75 MG PO (09:10)
--- NOTE | 2023-10-07 12:11 | P.PNIM_ITS ---
Subjective Subjective Date of Service: 10/07/23 Interval History: seen and examined improving but still with significant dyspnea on minimal exertion (to and from bathroom) still with cough and wheezing Physical Exam 2 Vital Signs: Vital Signs: Last Vital Signs Temp 98 F 10/07/23 06:44 Pulse 74 10/07/23 11:35 Resp 16 10/07/23 11:35 BP 158/80 H 10/07/23 06:44 Pulse Ox 95 10/07/23 06:44 O2 Del Method Room Air 10/07/23 06:44 O2 Flow Rate 2 10/07/23 04:00 BMI result Body Mass Index 20.8 Const: Other: General - no acute distress, appears comfortable Cardiovascular - regular rate and rhythm, S1-S2 Lungs - poor air entry globally Abdomen - soft, nontender, no rebound or guarding Extremities - no edema bilaterally Neuro - awake and alert, no focal deficits Objective Data Active Medications Acetaminophen (Acetaminophen 325 Mg Tablet) 650 mg PO Q6H PRN PRN Reason: Pain, Mild (Pain Scale 1-3), fever or headache Albuterol Sulfate (Albuterol Sulfate (0.083%) 2.5 Mg/3 Ml Vial.Neb) 2.5 mg INHALE Q2H PRN PRN Reason: Shortness of Breath/Wheezing Albuterol/Ipratropium (Albuterol/Iprat 2.5/0.5mg 3 Ml Ampul.Neb) 3 ml INHALE RQ4H WHILE AWAKE [facility] Last Admin: 10/07/23 11:34 Dose: 3 ml Documented By: BREE Benzonatate (Benzonatate 100 Mg Capsule) 200 mg PO TID PRN PRN Reason: Cough Last Admin: 10/07/23 00:34 Dose: 200 mg Documented By: OSCAR Calcium Carbonate (Calcium Carbonate 750 Mg Tab.Chew) 750 mg PO Q4H PRN PRN Reason: Heartburn Enoxaparin Sodium (Enoxaparin Sodium 40 Mg/0.4 Ml Syringe) 40 mg SUBCUT Q24H [facility] Last Admin: 10/06/23 19:43 Dose: 40 mg Documented By: CLEMENT Guaifenesin/Codeine Phosphate (Guaifen/Codeine Sf 200/20/10ml 10 Ml Liquid) 10 ml PO Q6H PRN PRN Reason: Cough Last Admin: 10/07/23 09:19 Dose: 10 ml Documented By: KALI Azithromycin 500 mg/ Sodium (Chloride) 250 mls @ 125 mls/hr IV Q24H [facility] Last Infusion: 10/07/23 04:03 Dose: Infused Documented By: OSCAR Magnesium Hydroxide (Milk Of Magnesia 30 Ml Oral.Susp) 30 ml PO DAILY PRN PRN Reason: Constipation Melatonin (Melatonin 3 Mg Tablet) 6 mg PO BEDTIME PRN PRN Reason: Insomnia Last Admin: 10/07/23 00:34 Dose: 6 mg Documented By: OSCAR Methadone HCl (Methadone Hcl 20 Mg/2 Ml Oral.Conc) 75 mg PO DAILY [facility] Last Admin: 10/07/23 09:10 Dose: 75 mg Documented By: KALI Co-signed By: ALESSIA Methylprednisolone Sodium Succinate (Methylprednisolone Sod Succ 40 Mg/Ml Vial) 40 mg IVPUSH Q12H [facility] Last Admin: 10/07/23 09:10 Dose: 40 mg Documented By: KALI Ondansetron HCl (Ondansetron Hcl 4 Mg/2 Ml Vial) 4 mg IVPUSH Q8H PRN PRN Reason: Nausea and Vomiting Sodium Chloride (0.9 % Sodium Chloride Flush 3 Ml Syringe) 3 ml IVFLUSH QSHIFT [facility] Last Admin: 10/07/23 09:14 Dose: 3 ml Documented By: KALI Labs 10/04/23 04:47 10/04/23 04:47 Assessment and Plan (1) Acute hypoxemic respiratory failure: Status: Acute (2) Acute exacerbation of chronic obstructive pulmonary disease: Status: Acute Plan 68yo M with COPD not on home O2, tobacco abuse, HCV, OUD on methadone admitted for AHRF due to COPD exacerbation AHRF due to COPD exacerbation off o2 but still with [place] with minimal exertion, will continue current treatment x 24h more and re-eval add scheduled mucinex for non-productive cough tobacco abuse - counseled OUD - methadone VTE ppx - enoxaparin dispo - PT + home O2 evals In my clinical judgment, the patient requires continued inpatient hospitalization for the following reasons: wheezing, dyspneic on minimal exertion Total time managing care of this patient today: 35 minutes. Quality Stroke Does the patient have a stroke diagnosis?: No VTE Prior VTE?: No VTE Risk Level:: Medical - moderate - high VTE Device Contraindication: Treatment Not Indicated VTE Drug Contraindication: N/A - Med Ordered
[2023-10-07] MEDS: guaiFENesin DM 600/30 1 TAB TAB.ER.12H PO ×2 (12:23→19:27)
[2023-10-07] MEDS: Enoxaparin Sodium 40 MG/0.4 ML SYRINGE SUBCUT (19:27)
[2023-10-08 04:00] VITALS: BP 151/72; PULSE 64; RESP 16; TEMP 36; O2SAT 94
[2023-10-08 07:28] VITALS: BP 139/81; PULSE 75; RESP 16; TEMP 36.6; O2SAT 94
[2023-10-08 07:55] VITALS: PULSE 76; RESP 16; O2SAT 91
[2023-10-08] MEDS: Albuterol/Iprat 2.5/0.5MG 3 ML AMPUL.NEB INHALE ×2 (07:55→11:17)
[2023-10-08] MEDS: 0.9 % Sodium Chloride Flush 3 ML SYRINGE IVFLUSH (08:40)
[2023-10-08] MEDS: guaiFENesin DM 600/30 1 TAB TAB.ER.12H PO (08:40)
[2023-10-08] MEDS: methADONE HCl 20 MG/2 ML ORAL.CONC 75 MG PO (08:41)
[2023-10-08] MEDS: methylPREDNISolone Sod Succ 40 MG/ML VIAL IVPUSH (08:41)
--- NOTE | 2023-10-08 10:19 | MHC.CM.PN ---
Per MD rounds patient medically cleared for dc home self care. He will return to a friend's house where he says he is renting a room. Will self transport, car is in [facility] lot. RN aware. IMM delivered.
--- NOTE | 2023-10-08 11:11 | P.DS_ITS ---
DS: Providers Provider Date of Service: 10/08/23 Date of admission: 10/03/23 22:57 Primary care physician: None Physician DS: Diagnosis Discharge Diagnosis (1) Acute hypoxemic respiratory failure: Status: Acute (2) Acute exacerbation of chronic obstructive pulmonary disease: Status: Acute DS: Summary Hospital Course Hospital Course: HPI From admission H&P: This is a 68-year-old male with pertinent history of COPD not on home oxygen, tobacco use disorder, hepatitis-C, opioid use disorder on methadone who presents to the emergency department for evaluation of dyspnea. Patient states he has been having progressively worsening dyspnea that has been ongoing for the last 3-4 weeks. The dyspnea is worse with exertion. Also has associated productive cough and wheezing. Does have a history of COPD but is on albuterol home inhaler p.r.n.. Patient states he was too short of breath to go to the methadone clinic to take his methadone. Continues to smokes cigarettes. States he is currently not on treatment for hepatitis-C. No fever, chills, chest discomfort, palpitations, abdominal pain, changes in urinary or bowel habits. In the emergency department, patient was satting 86% on room air. He was placed on 2 L supplemental oxygen and given IV steroids with multiple DuoNeb treatments. Hospital Course: Patient was admitted for acute respiratory failure with hypoxia due to suspected COPD exacerbation. The patient was treated with supplemental oxygen, systemic steroids, scheduled nebulized bronchodilators and azithromycin. The patient had a slow response to therapy requiring 5 days of the previously mentioned treatment. He was able to be weaned from room air and is tolerating this at rest as well as exertion. His symptoms have improved. He will be discharged home with a prednisone taper along with a Combivent inhaler plus p.r.n. albuterol. The patient has not seen a PCP nor has been formally diagnosed with COPD. He will be referred to [facility] and also has been provided a list of PCPs. The patient has been strongly encouraged tobacco cessation and offered nicotine replacement therapy which he has declined. Time Attestation Total time managing care of this patient today: 40 mintues. Discharge Coordination Time (in mins): 40 Quality: Safe Use of Opioids Does Pt have an Active Cancer Diagnosis on the Problem List?: No Quality: Stroke Does the patient have a stroke diagnosis?: No Physical Exam Vital Signs: Vital Signs: Last Vital Signs Temp 98 F 10/08/23 07:28 Pulse 76 10/08/23 07:55 Resp 16 10/08/23 07:55 BP 139/81 10/08/23 07:28 Pulse Ox 94 10/08/23 07:28 O2 Del Method Room Air 10/08/23 07:28 O2 Flow Rate 2 10/07/23 04:00 BMI result Body Mass Index 20.8 Const: Other: General - no acute distress, appears comfortable Cardiovascular - regular rate and rhythm, S1-S2 Lungs - improving air entry globally Abdomen - soft, nontender, no rebound or guarding Extremities - no edema bilaterally Neuro - awake and alert, no focal deficits DS: Data Data Completed and Pending Labs on day of discharge: Preliminary micro results at discharge 10/03/23 23:38 Blood Culture - Preliminary Blood - Venous No growth after 48 hours. 10/03/23 23:38 Blood Culture - Preliminary Blood - Venous No growth after 48 hours. Discharge Plan Discharge Anticipated Discharge Date/Time: 10/08/23 11:04 Patient Disposition: Home, Self-Care Discharge Diagnosis: COPD/Respiratory failure Referrals: Physician,None [Primary Care Provider] - 1 Week Moris Esquivel MD [Physician] - 1 Week (call office for appt) Discharge Medications: New prednisone 10 mg tablet See Taper PO DIRECTED Qty: 50 0RF Taper: Prednisone 40 mg daily for 5 Days and 0 Hour 30 mg daily for 5 Days and 0 Hour 20 mg daily for 5 Days and 0 Hour 10 mg daily for 5 Days and 0 Hour Rx Instructions: see taper instructions; 40 mg Daily x5 days, 30 mg daily x5 days, 20 mg daily x5 days, 10 mg daily x5 days Combivent Respimat 20-100 mcg/actuation mist 1 puff inhalation Q6H PRN (Reason: shortness of breath or wheezing) Qty: 4 2RF albuterol sulfate 90 mcg/actuation HFA aerosol inhaler 2 puff inhalation Q6H PRN (Reason: shortness of breath or wheezing) Qty: 8.5 2RF guaifenesin [Mucinex] 1,200 mg tablet extended release 12hr 1,200 mg PO BID Qty: 14 0RF Continued methadone [Methadone Intensol] 10 mg/mL Concentrate 75 mg PO DAILY Discharge Orders: Discharge Order (Routine); Ordered 10/08/23 Ordered By: Mike Dumont Diet: Advance to usual diet Activity on Discharge: As tolerated Stand Alone Forms: Patient Portal Discharge page Print Language: Grenadian Care Plan Goals: To stay healthy and out of the hospital. Follow up with PCP Follow up with pulmonary Health Concerns: see d/c summary Plan of Treatment: see d/c summary Assessment: see d/c summary
[2023-10-08 11:25] VITALS: PULSE 78; RESP 14; O2SAT 96
== END 2023-10-08 12:55 | disposition home or self-care (01) | DRG 190 ==
LOC: HO.ED 22:58 → HO.EDOVER 23:02 → HO.S3 10-04 08:00
PROVIDERS: Physician Assistant Medical; Registered Nurse Emergency; Admitting Provider Student in an Organized Health Care Education/Training Program; Emergency Provider Emergency Medicine; Visit Provider Family Medicine
DX: J44.1 Chronic obstructive pulmonary disease with (acute) exacerbation (principal); J96.01 Acute respiratory failure with hypoxia; F11.20 Opioid dependence, uncomplicated; F17.210 Nicotine dependence, cigarettes, uncomplicated; Z20.822 Contact with and (suspected) exposure to COVID-19; Z71.6 Tobacco abuse counseling; Z91.148 Patient's other noncompliance with medication regimen for other reason; Z79.899 Other long term (current) drug therapy
CPT/HCPCS: 0241U; 36415; 71046; 80048; 80053; 82803; 83605; 83735; 84484; 85025; 87040; 93005; 94640; 97161; 99285; J0456; J0696; J1650; J2919

== ENCOUNTER → 2023-10-03 22:57 | Outpatient (BNV) | payer OTHER, SELFPAY | PROVIDERS: Admitting Provider Student in an Organized Health Care Education/Training Program; Emergency Provider Emergency Medicine; Visit Provider Student in an Organized Health Care Education/Training Program | DX: J96.01 Acute respiratory failure with hypoxia (principal); J44.1 Chronic obstructive pulmonary disease with (acute) exacerbation | CPT/HCPCS: 99222; 99232; 99239 ==